=== PATIENT | male | born 1950 | race Caucasian/White ===

== ENCOUNTER 2020-03-28 13:15 | Emergency (ER) | payer MEDICAID, OTHER, SELFPAY ==
[~2020-03-28] VITALS: Ht 157.5 cm; Wt 74.8 kg
[2020-03-28 14:37] VITALS: BP 132/82
--- NOTE | 2020-03-28 14:40 | NUR ---
c/o covid symptoms and cough. vss
--- NOTE | 2020-03-28 15:17 | NUR ---
COVID SWAB COLLECTED.
--- NOTE | 2020-03-28 15:18 | NUR ---
Patient discharged with v/s stable. Written and verbal after care instructions given and explained. Patient alert, oriented and verbalized understanding of instructions. Ambulatory with steady gait. All questions addressed prior to discharge. ID band removed. Patient advised to follow up with PMD. Rx of ALBUTEROL, TESSALON & MOTRIN given. Patient educated on indication of medication including possible reaction and side effects. Opportunity to ask questions provided and answered.
[2020-03-28 15:19] VITALS: BP 132/82
== END 2020-03-28 15:18 | disposition home or self-care (01) ==
LOC: MED 13:15
DX: R05 Cough (principal); Z20.828 Contact with and (suspected) exposure to other viral communicable diseases; R43.8 Other disturbances of smell and taste; R51.9 Headache, unspecified
CPT/HCPCS: 99283; U0003

== ENCOUNTER 2020-10-12 14:13 | Emergency (ER) | payer OTHER, MEDICAID ==
[~2020-10-12] VITALS: Ht 157.5 cm; Wt 79.4 kg
[2020-10-12 14:23] VITALS: BP 171/79
[2020-10-12] MEDS ORDERED: ACETAMINOPHEN EXTRA STRENGTH 500 MG TAB PO ONE (14:30)
[2020-10-12] MEDS ORDERED: KETOROLAC 30 MG/ML VIAL IVP ONE (14:40)
[2020-10-12] MEDS ORDERED: NACL 0.9% 1,000 ML IV ONE (14:40)
[2020-10-12] MEDS ORDERED: ONDANSETRON 4 MG/2 ML VIAL IVP ONE (14:40)
[2020-10-12 15:36] LABS: BASOPHILS % (AUTO) 0.5 % (0.0-2.0); EOSINOPHILS % (AUTO) 0.2 % (0.0-4.0); HEMATOCRIT 37.4 % (36-52); HEMOGLOBIN 13.2 g/dL (12.0-18.0); LYMPHOCYTES % (AUTO) 10.4 % (20.5-51.1); MEAN CORPUSCULAR HEMOGLOBIN 33 pg (27-31); MEAN CORPUSCULAR HGB CONC 35 g/dL (33-37); MEAN CORPUSCULAR VOLUME 93.8 fL (80-94); MONOCYTES # (AUTO) 0.8 K/uL (0.8-1.0); MONOCYTES % (AUTO) 8.6 % (1.7-9.3); NEUTROPHILS # (AUTO) 7.6 K/uL (1.8-7.7); NEUTROPHILS % (AUTO) 80.3 % (42.2-75.2); PLATELET COUNT (AUTO) 178 K/uL (140-450); RED BLOOD CELL COUNT(AUTO) 3.99 MIL/uL (4.20-6.10); RED CELL DISTRIBUTION WIDTH 13.8 % (11.6-13.7); WHITE BLOOD COUNT (AUTO) 9.5 K/uL (4.8-10.8)
[2020-10-12 16:01] LABS: APPEARANCE,URINE CLEAR (CLEAR); BILIRUBIN,URINE NEGATIVE (NEGATIVE); BLOOD, URINE 3+ (NEGATIVE); COLOR,URINE YELLOW (YELLOW); LEUKOCYTE ESTERASE ,URINE NEGATIVE (NEGATIVE); NITRITE, URINE NEGATIVE (NEGATIVE); PH,URINE 5.5 (5.0-9.0); UGLUCOSE NEGATIVE (NEGATIVE)
[2020-10-12 16:11] LABS: WBC,URINE 0-5 /HPF (0-5)
[2020-10-12 16:12] LABS: CALCIUM OXALATE CRYSTALS,UR 0-10 /HPF (None Seen)
[2020-10-12 16:33] LABS: ALBUMIN 3.5 g/dL (3.4-5.0); CARBON DIOXIDE 26.8 mmol/L (21-32); CREATININE 1.1 mg/dL (0.6-1.3); POTASSIUM 3.8 mmol/L (3.5-5.1); TOTAL BILIRUBIN 0.7 mg/dL (0.0-1.0)
[2020-10-12] MEDS ORDERED: cefTRIAXone 1,000 MG VIAL ONE (17:48)
[2020-10-12] MEDS ORDERED: ONDA-24 SL (17:50)
[2020-10-12] MEDS ORDERED: CEPH-588 PO (17:50)
[2020-10-12 18:35] VITALS: BP 139/78
== END 2020-10-12 18:28 | disposition home or self-care (01) ==
LOC: MED 14:13
DX: N39.0 Urinary tract infection, site not specified (principal); Z20.822 Contact with and (suspected) exposure to COVID-19; R11.2 Nausea with vomiting, unspecified
CPT/HCPCS: 36415; 71045; 74177; 80053; 81001; 83605; 85025; 87040; 87426; 87804; 96365; 96375; 99285; J0696; J1885; J2405; J7030; Q9967; 81002